=== PATIENT | male | born 1970 | race Caucasian/White ===

== ENCOUNTER 2019-07-22 00:25 | Outpatient (CLI) | payer OTHER, SELFPAY ==
[2019-07-22 18:07] LABS: SARS-CoV-2 RNA PCR Negative
== END 2019-07-22 00:26 | disposition home or self-care (01) ==
LOC: ANHCOVIDDT 00:25
PROVIDERS: PCP Family Medicine; Visit Provider Internal Medicine Gastroenterology
DX: Z01.812 Encounter for preprocedural laboratory examination (principal); Z20.828 Contact with and (suspected) exposure to other viral communicable diseases
CPT/HCPCS: 87635; C9803; U0003

== ENCOUNTER 2019-07-24 01:39 | Day surgery (SDC) | payer OTHER, SELFPAY ==
[2019-07-21 09:10] VITALS: BMI 35.9
[2019-07-24 08:58] VITALS: BP 149/89; PULSE 74; RESP 18; TEMP 36.2; O2SAT 96
[2019-07-24] MEDS: LACTATED RINGERS 1,000 ML 150 ML IV CONT (08:59)
--- NOTE | 2019-07-24 09:09 | WPDANESEPPF ---
Anes - Initial Pre Proc Eval Procedure: Operation Date: 07/24/19 10:00 Proposed Procedures p Screening Colonoscopy - Jordy Newman MD Date/Time: 07/24/19 09:09 Surgeon: Jordy Newman MD Pre Op Diagnosis: Hx Colon Polyps Patient Data Age: 49 Gender: M Height: 1.83 m Weight: 114.8 kg Last Vital Signs Temp 36.2 C L 07/24/19 08:58 Pulse 74 07/24/19 08:58 Resp 18 07/24/19 08:58 BP 149/89 H 07/24/19 08:58 Pulse Ox 96 07/24/19 08:58 Allergies Allergy/AdvReac Type Severity Reaction Status Date / Time cephalexin Allergy Unknown Rash Verified 07/24/19 08:57 Home Medications Medication Instructions Recorded Confirmed Type gabapentin 300 mg capsule 300 mg PO DAILY 02/03/19 07/21/19 History hydroxyzine HCl 50 mg tablet 50 mg PO BID 02/03/19 07/21/19 History meloxicam 15 mg tablet 15 mg PO DAILY 02/03/19 07/21/19 History omeprazole 40 mg capsule,delayed 40 mg PO DAILY 02/03/19 07/21/19 History release prasterone (dhea) 25 mg capsule 25 mg PO DAILY 02/03/19 07/21/19 History testosterone cypionate 200 mg/mL 200 mg IM MONTHLY 02/03/19 07/21/19 History intramuscular oil sertraline 100 mg tablet 100 mg PO DAILY 04/08/19 07/21/19 History zolpidem 10 mg tablet 10 mg PO ONCE 04/08/19 07/21/19 History Patient hx anesthesia problems: none Family hx anesthesia problems: none PMFSH Past Medical History Medical History (Updated 07/24/19 @ 07:47 by Alfa Toro DO) Anxiety Depression Essential hypertension GERD (gastroesophageal reflux disease) GRAEME (obstructive sleep apnea) Family History Family History (Updated 03/29/17 @ 06:40 by DOCTOR UNKNOWN) Mother Patient's mother is in good health Sibling Patient's sister is in good health Grandparent Family history of malignant neoplasm Father Family history of lung cancer, Onset Age: 50 Other Family history of malignant neoplasm of breast Social History Social History (Updated 04/08/19 @ 08:59 by Trevon Menjivar CMA) Smoking packs per day: 2 Smoking cigarettes per day: 40.0 Years smoked: 25 Smoking pack-years: 50.00 Smoking status: Former smoker Smoking end date: 02/25/11 Anes - Eval Final PreProcedure Day of Procedure 07/24/19 09:09 Patient weight: obese Heart: regular rate and rhythm Lungs: clear to auscultation and normal air movement Airway: Mallampati scale class II Neurological: alert and oriented Last oral intake: >/= 8 hours ASA classification: III Emergent: no Anesthetic plan: proceed Anesthesia type and monitoring: general GIVS and standard monitoring Informed Consent: The patient's anesthetic plan and its attendant risks and benefits were discussed with the patient/family/POA. Questions were solicited and answers provided to the satisfaction of the patient/family/POA.
--- NOTE | 2019-07-24 09:14 | P.HP_ITS ---
History of Present Illness History of Present Illness Consent: Risks, benefits, and alternatives have been discussed and questions answered. Patient agrees to proceed with procedure. Chief complaint: Hx Colon Polyps Narrative: Otto Martínez is a 49 year old W male referred for screening colonoscopy secondary history of colonic polyps. Sigmoid adenoma removed 5 years ago. Patient also history of Adam's is on PPI therapy as no symptoms his last EGD was a year ago. [facility] Past Medical History Medical History Anxiety Depression Essential hypertension GERD (gastroesophageal reflux disease) GRAEME (obstructive sleep apnea) Family History Family History (Updated 03/29/17 @ 06:40 by DOCTOR UNKNOWN) Mother Patient's mother is in good health Sibling Patient's sister is in good health Grandparent Family history of malignant neoplasm Father Family history of lung cancer, Onset Age: 50 Other Family history of malignant neoplasm of breast Social History Social History (Updated 04/08/19 @ 08:59 by Trevon Menjivar [facility]) Smoking packs per day: 2 Smoking cigarettes per day: 40.0 Years smoked: 25 Smoking pack-years: 50.00 Smoking status: Former smoker Smoking end date: 02/25/11 Meds Home Medications and Allergies Home Medications Medication Instructions Recorded Confirmed Type gabapentin 300 mg capsule 300 mg PO DAILY 02/03/19 07/21/19 History hydroxyzine HCl 50 mg tablet 50 mg PO BID 02/03/19 07/21/19 History meloxicam 15 mg tablet 15 mg PO DAILY 02/03/19 07/21/19 History omeprazole 40 mg capsule,delayed 40 mg PO DAILY 02/03/19 07/21/19 History release prasterone (dhea) 25 mg capsule 25 mg PO DAILY 02/03/19 07/21/19 History testosterone cypionate 200 mg/mL 200 mg IM MONTHLY 02/03/19 07/21/19 History intramuscular oil sertraline 100 mg tablet 100 mg PO DAILY 04/08/19 07/21/19 History zolpidem 10 mg tablet 10 mg PO ONCE 04/08/19 07/21/19 History Allergies Allergy/AdvReac Type Severity Reaction Status Date / Time cephalexin Allergy Unknown Rash Verified 07/24/19 08:57 Vital Signs Vital Signs - 24 hr 07/24/19 08:58 Temperature 36.2 C L Pulse Rate 74 Respiratory Rate 18 Blood Pressure 149/89 H Pulse Oximetry 96 Exam Const: Orientation/consciousness: patient oriented x3 Resp: Auscultation: clear to auscultation bilaterally Cardio: Rate: regular rate Rhythm: regular rhythm Heart sounds: no murmurs GI: GI Palp: Yes Soft to palpation, No Tenderness to palpation present (GI), Yes No hepatosplenomegaly present and No Palpable mass present Auscultation: normal bowel sounds Neuro: General: patient oriented x3 and no focal motor deficits Extrem: General: no pedal edema Assessment and Plan Additional Plan Screening colonoscopy secondary history of colonic polyps
[2019-07-24] MEDS: SIMETHICONE ORAL SUSPENSION 20 MG/0.3 ML 30 ML BOTTLE 0.6 ML IRRIGATION (10:40)
[2019-07-24 10:46] VITALS: BP 104/65; PULSE 61; RESP 34; O2SAT 99
[2019-07-24 10:56] VITALS: BP 105/66; PULSE 54; RESP 19; O2SAT 98
[2019-07-24 11:06] VITALS: BP 129/88; PULSE 63; RESP 16; O2SAT 99
== END 2019-07-24 11:28 | disposition home or self-care (01) ==
PROVIDERS: PCP Family Medicine; Visit Provider Internal Medicine Gastroenterology
PROC: 0DJD8ZZ Inspection of Lower Intestinal Tract, Via Natural or Artificial Opening Endoscopic (ICD-10-PCS; CPT 45378; principal; 2019-07-24 10:00)
DX: Z12.11 Encounter for screening for malignant neoplasm of colon (principal); D12.5 Benign neoplasm of sigmoid colon; K63.5 Polyp of colon; K64.8 Other hemorrhoids; I10 Essential (primary) hypertension; G47.33 Obstructive sleep apnea (adult) (pediatric); K21.9 Gastro-esophageal reflux disease without esophagitis; F41.8 Other specified anxiety disorders; Z87.891 Personal history of nicotine dependence; E66.9 Obesity, unspecified; Z68.34 Body mass index [BMI] 34.0-34.9, adult
CPT/HCPCS: 45380; 45385; 88305; J2704; J7120

== ENCOUNTER → 2020-06-03 00:38 | Outpatient (CLI) | payer OTHER, SELFPAY ==
[2020-06-03 19:49] LABS: SARS-CoV-2 RNA PCR Negative
== END ==
PROVIDERS: PCP Family Medicine; Visit Provider Surgery
DX: Z01.812 Encounter for preprocedural laboratory examination (principal); Z20.822 Contact with and (suspected) exposure to COVID-19
CPT/HCPCS: C9803; U0003; U0005

== ENCOUNTER 2020-06-03 07:26 | Outpatient (CLI) | payer OTHER, SELFPAY ==
--- NOTE | 2020-06-03 08:30 | ECG_ITS ---
Measurements Intervals [place] Rate: 82 P: 61 MD: 168 QRS: -31 QRSD: 109 T: 16 QT: 355 QTc: 416 Interpretive Statements SINUS RHYTHM LEFT AXIS DEVIATION BASELINE ARTIFACT- I, III BORDERLINE ECG Electronically Signed On 06-03-2020 8:07:03 CDT by Agustín Addison D.O.
== END 2020-06-03 07:27 | disposition home or self-care (01) ==
PROVIDERS: PCP Family Medicine; Visit Provider Surgery
DX: Z01.818 Encounter for other preprocedural examination (principal); I10 Essential (primary) hypertension
CPT/HCPCS: 93005

== ENCOUNTER 2020-06-06 01:48 | Day surgery (SDC) | payer OTHER, SELFPAY ==
[2020-05-23 11:44] VITALS: BMI 38.0
[2020-06-06 10:16] VITALS: BP 127/90; PULSE 80; RESP 22; TEMP 37.1; O2SAT 96
[2020-06-06] MEDS: LACTATED RINGERS 1,000 ML 30 ML IV CONT ×2 (10:30→12:30)
--- NOTE | 2020-06-06 10:32 | WPDANESEPPF ---
Anes - Initial Pre Proc Eval Procedure: Operation Date: 06/06/20 12:00 Proposed Procedures p Excision Three Centimeter Posterior Neck Mass - Ramos Moffett DO Date/Time: 06/06/20 10:32 Surgeon: Ramos Moffett DO Pre Op Diagnosis: Neck Mass Patient Data Age: 50 Gender: M Height: 6 ft Weight: 127 kg Allergies Allergy/AdvReac Type Severity Reaction Status Date / Time cephalexin AdvReac Mild Rash Verified 06/06/20 10:15 Home Medications Medication Instructions Recorded Confirmed Type gabapentin 300 mg capsule 300 mg PO HS 02/03/19 06/06/20 History hydroxyzine HCl 50 mg tablet 50 mg PO BID 02/03/19 06/06/20 History meloxicam 15 mg tablet 15 mg PO HS 02/03/19 06/06/20 History testosterone cypionate 200 mg/mL 200 mg IM WEEKLY 02/03/19 06/06/20 History intramuscular oil zolpidem 10 mg tablet 10 mg PO HS 04/08/19 06/06/20 History bupropion HCl 150 mg 24 hr tablet, 150 mg PO HS 03/14/20 06/06/20 History extended release lisinopril 20 mg tablet 20 mg PO HS 03/14/20 06/06/20 History pantoprazole 40 mg tablet,delayed 40 mg PO HS 03/14/20 06/06/20 History release prasterone (dhea) [DHEA] 25 mg PO HS 05/23/20 06/06/20 History Patient hx anesthesia problems: none Family hx anesthesia problems: post op nausea/vomiting PMFSH Past Medical History Medical History Anxiety Barretts esophagus Depression Encounter for colonoscopy due to history of adenomatous colonic polyps Essential hypertension GERD (gastroesophageal reflux disease) GRAEME (obstructive sleep apnea) Surgical History Surgical History Hx of colonoscopy Family History Family History Mother Patient's mother is in good health Sibling Patient's sister is in good health Grandparent Family history of malignant neoplasm Father Family history of lung cancer, Onset Age: 50 Other Family history of malignant neoplasm of breast Social History Social History Smoking packs per day: 2 Smoking cigarettes per day: 40.0 Years smoked: 25 Smoking pack-years: 50.00 Smoking status: Former smoker Smoking end date: 02/25/11 Alcohol intake: current Drinks per week: 14 Substance use: never Substance use type: does not use Living arrangements: with family Spiritual care concerns: No Anes - Eval Final PreProcedure Day of Procedure 06/06/20 10:32 Patient weight: obese Heart: regular rate and rhythm Lungs: decreased breath sounds Airway: Mallampati scale class II Neurological: alert and oriented Last oral intake: >/= 8 hours ASA classification: III Emergent: no Anesthetic plan: proceed Anesthesia type and monitoring: general GIVS and standard monitoring Informed Consent: The patient's anesthetic plan and its attendant risks and benefits were discussed with the patient/family/POA. Questions were solicited and answers provided to the satisfaction of the patient/family/POA.
--- NOTE | 2020-06-06 10:56 | WPDHPUPDATE1 ---
History and Physical Update Update Date/Time: 06/06/20 10:56 History and Physical has been reviewed, including an updated exam of the patient. There are NO changes in the patient's condition. Risks, benefits, and alternatives have been discussed and questions answered. Patient agrees to proceed with procedure.
--- NOTE | 2020-06-06 10:57 | PM.IMHP ---
H&P: HPI History of Present Illness Date/Time: 06/06/20 10:57 50 yo man presents for excision of 3cm post neck mass. No changes since last seen in office. Chief Complaint: neck mass Review of Systems Review of Systems: All systems reviewed & are unremarkable except as noted in HPI and below Constitutional: Constitutional: Denies chills, Denies fever(s), Denies headache(s) and Denies weight loss Eyes: Eyes: Denies change in vision ENT: Denies dizziness, Denies headache(s), Denies neck mass and Denies throat swelling Cardiovascular: Cardiovascular: Denies chest pain, Denies lightheadedness and Denies dyspnea Respiratory: Respiratory: Denies cough, Denies dyspnea and Denies wheezing Gastrointestinal: Gastrointestinal: Denies abdominal pain, Denies change in bowel habits, Denies nausea and Denies vomiting Genitourinary: Genitourinary: Denies hematuria and Denies dysuria Musculoskeletal: Musculoskeletal: Reports as per HPI Integumentary/Breasts: Skin/Breast: Reports as per HPI Neurologic: Denies dizziness and Denies headache(s) Allergic/Immunologic: Allergic/Immunologic: Denies throat swelling and Denies wheezing PMF Past Medical History Medical History Anxiety Barretts esophagus Depression Encounter for colonoscopy due to history of adenomatous colonic polyps Essential hypertension GERD (gastroesophageal reflux disease) GRAEME (obstructive sleep apnea) Surgical History Surgical History Hx of colonoscopy Family History Family History Mother Patient's mother is in good health Sibling Patient's sister is in good health Grandparent Family history of malignant neoplasm Father Family history of lung cancer, Onset Age: 50 Other Family history of malignant neoplasm of breast Social History Social History Smoking packs per day: 2 Smoking cigarettes per day: 40.0 Years smoked: 25 Smoking pack-years: 50.00 Smoking status: Former smoker Smoking end date: 02/25/11 Alcohol intake: current Drinks per week: 14 Substance use: never Substance use type: does not use Living arrangements: with family Spiritual care concerns: No Meds Home Medications and Allergies Home Medications Medication Instructions Recorded Confirmed Type gabapentin 300 mg capsule 300 mg PO HS 02/03/19 06/06/20 History hydroxyzine HCl 50 mg tablet 50 mg PO BID 02/03/19 06/06/20 History meloxicam 15 mg tablet 15 mg PO HS 02/03/19 06/06/20 History testosterone cypionate 200 mg/mL 200 mg IM WEEKLY 02/03/19 06/06/20 History intramuscular oil zolpidem 10 mg tablet 10 mg PO HS 04/08/19 06/06/20 History bupropion HCl 150 mg 24 hr tablet, 150 mg PO HS 03/14/20 06/06/20 History extended release lisinopril 20 mg tablet 20 mg PO HS 03/14/20 06/06/20 History pantoprazole 40 mg tablet,delayed 40 mg PO HS 03/14/20 06/06/20 History release prasterone (dhea) [DHEA] 25 mg PO HS 05/23/20 06/06/20 History Allergies Allergy/AdvReac Type Severity Reaction Status Date / Time cephalexin AdvReac Mild Rash Verified 06/06/20 10:15 Vital Signs Vital Signs - 24 hr 06/06/20 10:16 Temperature 37.1 C Pulse Rate 80 Respiratory Rate 22 H Blood Pressure 127/90 Pulse Oximetry 96 Exam Const: General: no acute distress and alert Orientation/consciousness: patient oriented x3 HENMT: Head: normocephalic and atraumatic Ears: hearing grossly normal bilaterally General nose exam: Normal nares present Mouth: Yes Normal oral and palatal mucosa present Eyes: Periorbital: periorbital findings normal Sclera: sclerae normal EOM: EOMs intact bilaterally Neck: Neck: normal visual inspection, no lymphadenopathy and trachea midline Chest: Chest palpation & inspection: norm
--- NOTE | 2020-06-06 10:57 | SUR.PREOP ---
[id number] WITH DR. REED RE: ANTIBIOTIC-NO ANTIBIOTIC NEEDED.
[2020-06-06] MEDS: LIDO 1%/EPINEPHRINE 1:100,000 50 ML VIAL 10 ML INFILTRATE (11:57)
--- NOTE | 2020-06-06 12:12 | P.OP_ITS ---
Procedure Note - Detailed Date of procedure: 06/06/20 Pre-op diagnosis: Neck Mass Post-op diagnosis: same Procedure performed: Excision of 3 cm posterior neck mass Description of procedure: * Procedure as well as risks, benefits, and alternatives were discussed with the patient. Written consent was obtained and placed in chart prior to procedure. Patient was brought back to surgical suite. He was placed prone on operating table. Time-out was done to confirm patient and procedure. IV sedation was then administered by the Anesthesia Department. His posterior neck region was prepped and draped in sterile fashion using chlorhexidine prep. 1% lidocaine with epinephrine was infiltrated locally around the mass. A 3 cm elliptical incision was then made around the mass using a 15 blade scalpel. The mass was sharply excised from the dermis and subcu space using the 15 blade scalpel. The mass was completely excised and sent to the lab for pathology. Electrocautery was then used for hemostasis. Careful inspection was made around the wound bed and no other masses or abnormalities were noted. The skin edges were then reapproximated using 3 0 nylon simple interrupted sutures. Bacitracin ointment was applied followed by 4 x 4 gauze and tape. The patient was then awakened from anesthesia and transferred to recovery. Anesthesia: MAC and local (1% lidocaine with epinephrine) Surgeon: Ramos Moffett DO Estimated blood loss (mL): 5 Pathology: yes (3 cm posterior neck mass) Complications: No immediate complications Condition: stable Disposition: same day Findings: This is a 50-year-old man who presents with a neck mass that has enlarged over the last several years. He has a prior history of an infected cyst that was incised and drained many years ago. This healed up at the time but recently he has noted it starting to swell up again. Discussions were made with the patient about treatment options and decision was made to proceed with excision of 3 cm posterior neck mass. 3 cm posterior neck mass was excised. This appeared to be an inclusion cyst and old scar tissue. No other deep abnormalities were noted. The mass was sent to the lab for pathology.
[2020-06-06 12:20] VITALS: BP 120/69; PULSE 86; RESP 16; O2SAT 93
[2020-06-06 12:50] VITALS: BP 116/73; PULSE 72
[2020-06-06 13:10] VITALS: BP 118/80; PULSE 72
== END 2020-06-06 13:24 | disposition home or self-care (01) ==
PROVIDERS: PCP Family Medicine; Visit Provider Surgery
PROC: (CPT 11424; principal; 2020-06-06 12:00)
DX: L90.5 Scar conditions and fibrosis of skin (principal); K22.70 Barrett's esophagus without dysplasia; F41.8 Other specified anxiety disorders; K21.9 Gastro-esophageal reflux disease without esophagitis; G47.33 Obstructive sleep apnea (adult) (pediatric); Z87.891 Personal history of nicotine dependence; E66.9 Obesity, unspecified; Z68.39 Body mass index [BMI] 39.0-39.9, adult; I10 Essential (primary) hypertension
CPT/HCPCS: 11424; 88304; 93005; A9270; C9803; J1100; J2250; J2405; J2704; J3010; J7120; U0003; U0005

== ENCOUNTER 2020-09-25 08:36 | Outpatient (CLI) | payer OTHER, SELFPAY ==
--- NOTE | ~2020-09-25 | XR_ITS ---
XR lumbar spine 2-3V DATE: 09/25/2020 08:50 INDICATION: Back pain TECHNIQUE: AP, lateral, coned lateral lumbosacral views COMPARISON: 07/04/2017 MRI lumbar spine examination 09/20/2016 lumbar spine FINDINGS: There is mild dextro scoliosis of the lumbar spine. Degenerative spurring of the lower thoracic spine. There is moderate degenerative disc disease at L1-2, L2-3 and L3-4. No fracture or bone destruction or spondylolisthesis. The lumbar pedicles are intact. The sacroiliac joints appear normal. IMPRESSION: Moderate degenerative disc disease Mild dextroscoliosis of the lumbar spine Reviewed, dictated and finalized at location B.
--- NOTE | ~2020-09-25 | XR_ITS ---
EXAMINATION: XR hip BI 2V w AP pelvis DATE: 09/25/2020 08:50 INDICATION: Low back pain TECHNIQUE: AP view the pelvis and two views of each hip were obtained. COMPARISON: None. FINDINGS: Bone alignment is normal. There is no fracture. There are phleboliths of the left pelvis. T he soft tissues are unremarkable. IMPRESSION: 1. No acute osseous abnormality. Reviewed, dictated and finalized at location A.
== END 2020-09-25 08:37 | disposition home or self-care (01) ==
LOC: ANHIMG 08:39
PROVIDERS: PCP Family Medicine; Visit Provider Family Medicine
DX: M47.896 Other spondylosis, lumbar region (principal); M51.36 Other intervertebral disc degeneration, lumbar region; M41.86 Other forms of scoliosis, lumbar region
CPT/HCPCS: 72100; 73521

== ENCOUNTER 2021-04-22 11:12 | Outpatient (CLI) | payer OTHER, SELFPAY ==
--- NOTE | ~2021-04-22 | CT_ITS ---
EXAMINATION: CT lung screening DATE: 04/22/2021 11:38 INDICATION: Personal history of nicotine dependence, prior smoker with 40 pack year history TECHNIQUE: Computed tomography (CT) of the chest was performed without intravenous contrast. The dose -length product (DLP) was 395.28 mGy-cm. Automated exposure control and iterative reconstruction tech [employer] were employed. COMPARISON: None FINDINGS: No suspicious pulmonary nodules are identified. The lungs are free of acute opacities. Ther e is no pleural effusion or pneumothorax. No pathologically enlarged thoracic lymph nodes are identif ied. The heart size is normal. There are multiple age-indeterminate compression fractures of the thor acic spine. IMPRESSION: 1. Lung-RADS category 1: Negative. Continue annual screening with noncontrast low-dose chest CT in 12 months. Reviewed, dictated and finalized at location F. ER TESTING TECHNICIAN IMPRESSION: 1. Lung-RADS category 1: Negative. Continue annual screening with noncontrast l ow-dose chest CT in 12 months.
== END 2021-04-22 11:13 | disposition home or self-care (01) ==
PROVIDERS: PCP Family Medicine; Visit Provider Physician Assistant
DX: Z12.2 Encounter for screening for malignant neoplasm of respiratory organs (principal); Z87.891 Personal history of nicotine dependence
CPT/HCPCS: 71271

== ENCOUNTER 2021-07-07 01:22 | Day surgery (SDC) | payer OTHER, SELFPAY ==
[2021-06-19 13:30] VITALS: BMI 36.3
--- NOTE | 2021-07-06 14:06 | PM.HPGS ---
History of Present Illness History of Present Illness Consent: Risks, benefits, and alternatives have been discussed and questions answered. Patient agrees to proceed with procedure. Chief complaint: neoplasm, hx of colon polyps, epstein's esophagus Narrative: Otto Martínez is a 51 year old male with a history of colon polyps. He also has been found to have Barretts esophagus is due for surveillance because of that. Review of Systems Review of Systems: All systems reviewed & are unremarkable except as noted in HPI and below PMFSH Past Medical History Medical History Anxiety Barretts esophagus Depression Encounter for colonoscopy due to history of adenomatous colonic polyps Essential hypertension Former smoker GERD (gastroesophageal reflux disease) GRAEME (obstructive sleep apnea) Surgical History Surgical History Hx of colonoscopy Neck mass Family History Family History Mother Patient's mother is in good health Sibling Patient's sister is in good health Grandparent Family history of malignant neoplasm Father Family history of lung cancer, Onset Age: 50 Other Family history of malignant neoplasm of breast Social History Social History Smoking packs per day: 2 Smoking cigarettes per day: 40.0 Years smoked: 25 Smoking pack-years: 50.00 Smoking status: Former smoker Tobacco type: cigarettes Smoking end date: 02/25/11 Alcohol intake: current Drinks per week: 7 Substance use: never Substance use type: does not use Living arrangements: with family Spiritual care concerns: No Meds Home Medications and Allergies Home Medications Medication Instructions Recorded Confirmed Type gabapentin 300 mg capsule 300 mg PO HS 02/03/19 06/19/21 History hydroxyzine HCl 50 mg tablet 50 mg PO BID 02/03/19 06/19/21 History testosterone cypionate 200 mg/mL 200 mg IM [id number] 02/03/19 06/19/21 History intramuscular oil zolpidem 10 mg tablet 10 mg PO HS 04/08/19 06/19/21 History bupropion HCl 150 mg 24 hr tablet, 150 mg PO HS 03/14/20 06/19/21 History extended release lisinopril 20 mg tablet 20 mg PO HS 03/14/20 06/19/21 History pantoprazole 40 mg tablet,delayed 40 mg PO HS 03/14/20 06/19/21 History release DHEA 25 mg PO HS 05/23/20 06/19/21 History methocarbamol 750 mg tablet 750 mg PO TID 04/10/21 06/19/21 History sildenafil 100 mg tablet 100 mg PO DAILY PRN 04/10/21 06/19/21 History tamsulosin 0.4 mg capsule 0.4 mg PO DAILY 04/10/21 06/19/21 History Allergies Allergy/AdvReac Type Severity Reaction Status Date / Time cephalexin AdvReac Mild Rash Verified 07/07/21 07:37 Exam Resp: Auscultation: clear to auscultation bilaterally Cardio: Rate: regular rate Rhythm: regular rhythm GI: GI Palp: Yes Soft to palpation and No Tenderness to palpation present (GI) Assessment and Plan Assessment and plan (1) Barretts esophagus: Code(s): K22.70 - Epstein's esophagus without dysplasia Status: Acute Assessment and Plan: EGD with possible biopsy or dilatation or cautery. (2) Colon cancer screening: Code(s): Z12.11 - Encounter for screening for malignant neoplasm of colon Status: Acute Assessment and Plan: Colonoscopy with possible biopsy or polypectomy or cautery or injection of substances.
[2021-07-07 07:38] VITALS: BMI 35.5
[2021-07-07 07:39] VITALS: BP 131/83; PULSE 87; RESP 18; TEMP 36.5; O2SAT 97
[2021-07-07] MEDS: LACTATED RINGERS 1,000 ML 150 ML IV CONT (07:46)
--- NOTE | 2021-07-07 08:02 | WPDANESEPPF ---
Anes - Initial Pre Proc Eval Procedure: Operation Date: 07/07/21 08:30 Proposed Procedures p Esophagogastroduodenoscopy & Screening Colonoscopy - Randy Martin MD Date/Time: 07/07/21 08:02 Surgeon: Randy Martin MD Pre Op Diagnosis: neoplasm, hx of colon polyps, epstein's esophagus Patient Data Age: 51 Gender: M Height: 1.83 m Weight: 118.8 kg Last Vital Signs Temp 36.5 C 07/07/21 07:39 Pulse 87 07/07/21 07:39 Resp 18 07/07/21 07:39 BP 131/83 07/07/21 07:39 Pulse Ox 97 07/07/21 07:39 Allergies Allergy/AdvReac Type Severity Reaction Status Date / Time cephalexin AdvReac Mild Rash Verified 07/07/21 07:37 Home Medications Medication Instructions Recorded Confirmed Type gabapentin 300 mg capsule 300 mg PO HS 02/03/19 06/19/21 History hydroxyzine HCl 50 mg tablet 50 mg PO BID 02/03/19 06/19/21 History testosterone cypionate 200 mg/mL 200 mg IM [id number] 02/03/19 06/19/21 History intramuscular oil zolpidem 10 mg tablet 10 mg PO HS 04/08/19 06/19/21 History bupropion HCl 150 mg 24 hr tablet, 150 mg PO HS 03/14/20 06/19/21 History extended release lisinopril 20 mg tablet 20 mg PO HS 03/14/20 06/19/21 History pantoprazole 40 mg tablet,delayed 40 mg PO HS 03/14/20 06/19/21 History release DHEA 25 mg PO HS 05/23/20 06/19/21 History methocarbamol 750 mg tablet 750 mg PO TID 04/10/21 06/19/21 History sildenafil 100 mg tablet 100 mg PO DAILY PRN 04/10/21 06/19/21 History tamsulosin 0.4 mg capsule 0.4 mg PO DAILY 04/10/21 06/19/21 History Patient hx anesthesia problems: none Family hx anesthesia problems: none Results Review: All pre-operative results and documents have been reviewed as part of the pre-operative evaluation. [facility] Past Medical History Medical History Anxiety Barretts esophagus Depression Encounter for colonoscopy due to history of adenomatous colonic polyps Essential hypertension Former smoker GERD (gastroesophageal reflux disease) GRAEME (obstructive sleep apnea) Surgical History Surgical History Hx of colonoscopy Neck mass Family History Family History Mother Patient's mother is in good health Sibling Patient's sister is in good health Grandparent Family history of malignant neoplasm Father Family history of lung cancer, Onset Age: 50 Other Family history of malignant neoplasm of breast Social History Social History Smoking packs per day: 2 Smoking cigarettes per day: 40.0 Years smoked: 25 Smoking pack-years: 50.00 Smoking status: Former smoker Tobacco type: cigarettes Smoking end date: 02/25/11 Alcohol intake: current Drinks per week: 7 Substance use: never Substance use type: does not use Living arrangements: with family Spiritual care concerns: No Anes - Eval Final PreProcedure Day of Procedure 07/07/21 08:02 Patient weight: obese Heart: regular rate and rhythm Lungs: clear to auscultation Airway: Mallampati scale class II Neurological: alert and oriented Last oral intake: >/= 8 hours ASA classification: III Emergent: no Anesthetic plan: proceed Anesthesia type and monitoring: general GIVS and standard monitoring Results Review: All pre-operative results and documents have been reviewed as part of the pre-operative evaluation. Informed Consent: The patient's anesthetic plan and its attendant risks and benefits were discussed with the patient/family/POA. Questions were solicited and answers provided to the satisfaction of the patient/family/POA.
--- NOTE | 2021-07-07 08:38 | SUR.OPER ---
EGD: [id number] COLON: [id number]
[2021-07-07 09:07] VITALS: BP 92/65; PULSE 78; RESP 16; O2SAT 94
[2021-07-07 09:17] VITALS: BP 109/70; PULSE 75; RESP 18; O2SAT 96
[2021-07-07 09:25] VITALS: BP 106/70; PULSE 78; RESP 18; O2SAT 96
== END 2021-07-07 09:33 | disposition home or self-care (01) ==
PROVIDERS: PCP Family Medicine; Visit Provider Internal Medicine Gastroenterology
PROC: 0DJ08ZZ Inspection of Upper Intestinal Tract, Via Natural or Artificial Opening Endoscopic (ICD-10-PCS; CPT 43235; principal; 2021-07-07 08:30)
DX: Z12.11 Encounter for screening for malignant neoplasm of colon (principal); K57.30 Diverticulosis of large intestine without perforation or abscess without bleeding; D12.5 Benign neoplasm of sigmoid colon; K22.70 Barrett's esophagus without dysplasia; K44.9 Diaphragmatic hernia without obstruction or gangrene; K21.9 Gastro-esophageal reflux disease without esophagitis; I10 Essential (primary) hypertension; G47.33 Obstructive sleep apnea (adult) (pediatric); F41.8 Other specified anxiety disorders; Z87.891 Personal history of nicotine dependence; E66.9 Obesity, unspecified; Z68.35 Body mass index [BMI] 35.0-35.9, adult
CPT/HCPCS: 45385; 43239; 88305; J2704; J7120